=== PATIENT | female | born 1975 | race Caucasian/White ===

== ENCOUNTER 2019-12-11 06:16 | Inpatient (IN) ==
[2019-12-11] MEDS ORDERED: Ringers Solution, Lactated 1,000 ML IVC SCH (12:00)
[2019-12-11] MEDS ORDERED: Ketorolac 30 MG/ML VIAL IVP PRN (12:05)
[2019-12-11] MEDS ORDERED: Ondansetron ODT 4 MG TAB.RAPDIS SL PRN ×2 (13:00→18:29)
[2019-12-11] MEDS ORDERED: Naloxone 0.4 MG/ML INJ IVP PRN ×2 (13:00→18:29)
[2019-12-11] MEDS ORDERED: *HR* Midazolam HCl 2 MG/2 ML VIAL ONE (16:03)
[2019-12-11] MEDS ORDERED: Lidocaine -MPF 2% 2 ML VIAL ONE (16:03)
[2019-12-11] MEDS ORDERED: Dexamethasone 4 MG/ML VIAL ONE (16:03)
[2019-12-11] MEDS ORDERED: *HR* FentaNYL (PF) 100 MCG/2 ML VIAL ONE (16:03)
[2019-12-11] MEDS ORDERED: Ondansetron 4 MG/2 ML VIAL ONE (16:03)
[2019-12-11] MEDS ORDERED: *HR* Propofol 200 MG/20 ML VIAL IVP ONE (16:03)
[2019-12-11] MEDS ORDERED: Isovue-300 50ML VIAL ONE (16:21)
[2019-12-11] MEDS ORDERED: ceFAZolin 2,000 MG in Water for inj. (sterile) 20 ML IVP ONE (16:32)
[2019-12-11] MEDS ORDERED: *HR* FentaNYL (PF) 100 MCG/2 ML VIAL IVP PRN (16:35)
[2019-12-11] MEDS ORDERED: *HR* HYDROmorphone PF 0.5 MG/0.5 ML SYRINGE IVP PRN (16:35)
[2019-12-11] MEDS ORDERED: Ondansetron 4 MG/2 ML VIAL IVP ONE (16:35)
[2019-12-11] MEDS ORDERED: *HR* OxyCODONE Immed Rel 5 MG TABLET PO PRN (16:35)
[2019-12-11] MEDS ORDERED: Vancomycin 1,500 MG/265 ML IV.SOLN IVPB ONE ×2 (17:00→18:29)
[2019-12-11 20:15] LABS: BUN/Creatinine Ratio 16 (6-26); Blood Urea Nitrogen 16 mg/dL (6-20); eGFR For African Americans > 60 (> 60); eGFR For Non-African Americans 59 (> 60)
[2019-12-11] MEDS: 0.9 % Sodium Chloride 1,000 ML IVC SCH (20:30)
[2019-12-11] MEDS ORDERED: 0.9 % Sodium Chloride 1,000 ML ONE (21:06)
[2019-12-11] MEDS ORDERED: 0.9 % Sodium Chloride 500 ML IVC ONE (21:21)
[2019-12-12] MEDS: Ketorolac 30 MG/ML VIAL IVP PRN ×3 (03:07→20:16)
[2019-12-12 04:04] LABS: Hematocrit 34.4 % (35.3-44.9); Mean Corpuscular Hemoglobin 31.3 pg (28.0-33.3); Mean Corpuscular Volume 97.7 fL (83.0-100.0); Mean Platelet Volume 10.8 fL (9.4-12.4); Platelet Count 379 K/mcL (140-400); Red Blood Count 3.52 M/mcL (3.82-4.97); Red Cell Distribution Width 15.2 % (11.5-14.5)
[2019-12-12 04:12] LABS: White Blood Count 37.3 K/mcL (4.3-11.1)
[2019-12-12 04:22] LABS: BUN/Creatinine Ratio 21 (6-26); Blood Urea Nitrogen 19 mg/dL (6-20); Calcium 8.2 mg/dL (8.6-10.3); Carbon Dioxide 20 mEq/L (23-29); Chloride 111 mEq/L (98-107); Glucose 156 mg/dL (70-105); Magnesium 2.1 mg/dL (1.6-2.6); Osmolality,Calculated 287 (280-300); Potassium 4.3 mEq/L (3.5-5.1); Sodium 136 mEq/L (136-145); eGFR For African Americans > 60 (> 60); eGFR For Non-African Americans > 60 (> 60)
[2019-12-12] MEDS: 0.9 % Sodium Chloride 1,000 ML IVC SCH (04:41)
[2019-12-12] MEDS: Vancomycin 1,250 MG/262.5 ML IV.SOLN IVPB SCH ×2 (04:42→18:26)
[2019-12-12] MEDS: cefTRIAXone 2,000 MG in Water for inj. (sterile) 20 ML IVP SCH (07:49)
[2019-12-12] MEDS ORDERED: cefTRIAXone 2,000 MG in Water for inj. (sterile) 20 ML IVP SCH (09:00)
[2019-12-12] MEDS: *HR* Enoxaparin 40 MG/0.4 ML SYRINGE SQ SCH (15:53)
[2019-12-12 17:10] LABS: Bilirubin,Urine Small (Negative); Blood,Urine Moderate (Negative); Clarity,Urine Turbid (Clear); Color,Urine Dark-Yellow (Yellow); Glucose,Urine (UA) Normal (Normal); Granular Casts,Urine Few per lpf (None Seen); Ketones,Urine Negative (Negative); Leukocyte Esterase,Urine Moderate (Negative); Mucus,Urine Few per lpf (None-Few); Nitrite,Urine Positive (Negative); Protein,Urine 100 mg/dL (Neg-Trace); RBC,Urine TNTC per hpf (0-3); Specific Gravity,Urine 1.027 (1.010-1.025); Squamous Epithelial Cell,Urine Few per hpf (None-Few); WBC,Urine 50-100 per hpf (0-3)
[2019-12-12] MEDS: Famotidine 20 MG TABLET PO SCH (20:09)
[2019-12-12] MEDS ORDERED: traZODone 50 MG TABLET PO SCH (21:00)
[2019-12-13] MEDS: *HR* Enoxaparin 40 MG/0.4 ML SYRINGE SQ SCH (03:41)
[2019-12-13] MEDS: Ketorolac 30 MG/ML VIAL IVP PRN (03:41)
[2019-12-13 06:26] LABS: Basophils # 0.1 K/mcL (0.0-0.2); Basophils % 0.4 %; Eosinophils # 0.1 K/mcL (0.0-0.6); Eosinophils % 0.4 %; Hematocrit 32.1 % (35.3-44.9); Hemoglobin 10.6 g/dL (11.5-15.4); Immature Granulocytes % 0.6 % (0-4); Lymphocytes % 20.6 %; Mean Corpuscular Hemoglobin 32.4 pg (28.0-33.3); Mean Corpuscular Volume 98.2 fL (83.0-100.0); Mean Platelet Volume 10.8 fL (9.4-12.4); Monocytes # 1.8 K/mcL (0.0-1.3); Monocytes % 7.6 %; Neutrophils # 17.1 K/mcL (1.6-8.9); Platelet Count 325 K/mcL (140-400); Red Blood Count 3.27 M/mcL (3.82-4.97); Red Cell Distribution Width 15.6 % (11.5-14.5); Segmented Neutrophils % 70.4 %; White Blood Count 24.3 K/mcL (4.3-11.1)
[2019-12-13 06:46] LABS: BUN/Creatinine Ratio 28 (6-26); Blood Urea Nitrogen 27 mg/dL (6-20); Calcium 8.4 mg/dL (8.6-10.3); Carbon Dioxide 19 mEq/L (23-29); Chloride 112 mEq/L (98-107); Glucose 102 mg/dL (70-105); Osmolality,Calculated 289 (280-300); Potassium 4.2 mEq/L (3.5-5.1); Sodium 137 mEq/L (136-145); eGFR For African Americans > 60 (> 60); eGFR For Non-African Americans > 60 (> 60)
[2019-12-13] MEDS: cefTRIAXone 2,000 MG in Water for inj. (sterile) 20 ML IVP SCH (07:57)
[2019-12-13] MEDS: Famotidine 20 MG TABLET PO SCH (07:57)
[2019-12-13 11:29] VITALS: BP 134/85
[2019-12-13] MEDS: Vancomycin 1,250 MG/262.5 ML IV.SOLN IVPB SCH (11:43)
== END 2019-12-13 15:01 | disposition home or self-care (01) | DRG 720 ==
LOC: 2NNU → SUATTDRO 10:56 → 3BNU 12-12 17:12
PROVIDERS: ADMIT Family Medicine; ATTEND Internal Medicine